=== PATIENT | female | born 1935 | race Caucasian/White ===

== ENCOUNTER 2019-08-22 18:24 | Emergency (ER) | payer OTHER ==
[~2019-08-22] VITALS: Ht 167.6 cm; Wt 63.5 kg
[2019-08-22 18:58] LABS: BASOPHILS # (AUTO) 0.1 /CMM (0.0-0.2); BASOPHILS % (AUTO) 0.9 % (0.0-2.0); EOSINOPHILS % (AUTO) 1.8 % (0.0-6.0); HEMATOCRIT 37 % (33-45); HEMOGLOBIN 12.2 g/dL (11.5-14.8); LYMPHOCYTES # (AUTO) 1.3 /CMM (0.8-4.8); MEAN CORPUSCULAR HGB CONC 33 g/dl (31.0-36.0); MEAN CORPUSCULAR VOLUME 98 fL (82-100); MONOCYTES # (AUTO) 0.6 /CMM (0.1-1.30); MONOCYTES % (AUTO) 7.4 % (2.0-12.0); NEUTROPHILS # (AUTO) 5.7 /CMM (1.8-8.9); NEUTROPHILS % (AUTO) 72.9 % (43.0-81.0); PLATELET COUNT (AUTO) 214 /CMM (150-450); RED BLOOD CELL COUNT(AUTO) 3.72 MIL/uL (4.0-5.2); WHITE BLOOD COUNT (AUTO) 7.8 K/uL (4.3-11.0)
[2019-08-22] MEDS ORDERED: IV NS 0.9% 1,000 ML BAG IV ONE (19:00)
[2019-08-22 19:22] LABS: CALCIUM, SERUM 9.8 mg/dL (8.5-10.1); CARBON DIOXIDE 31 mmol/L (21-32); CHLORIDE 105 mmol/L (98-107); CREATININE 1.7 mg/dL (0.6-1.3); GLUCOSE 213 mg/dL (74-106); SODIUM SERUM 143 mmol/L (136-145); UREA NITROGEN, BLOOD 45 mg/dL (7-18)
[2019-08-22 19:28] LABS: ALANINE AMINOTRANSFERASE 6 U/L (12-78); ALBUMIN 3.2 g/dL (3.4-5.0); ASPARTATE AMINOTRANSFERASE 19 U/L (15-37); BILIRUBIN,DIRECT 0.1 mg/dL (0.0-0.2); BILIRUBIN,TOTAL 0.5 mg/dL (0.2-1.0); TOTAL PROTEIN, SERUM 6.9 g/dL (6.4-8.2)
--- NOTE | 2019-08-22 19:35 | NUR ---
ASSUMMED CARE FROM MIRNA WERNER FROM THIS TIME ONWARDS
--- NOTE | 2019-08-22 19:40 | NUR ---
PT PLACED ON MONITOR
[2019-08-22 19:54] LABS: ALKALINE PHOSPHATASE 43 U/L (46-116)
[2019-08-22 20:57] LABS: APPEARANCE,URINE TURBID (CLEAR); BILIRUBIN,URINE NEGATIVE (NEGATIVE); BLOOD, URINE TRACE Ery/uL (NEGATIVE); COLOR,URINE YELLOW (YELLOW); KETONES,URINE NEGATIVE (NEGATIVE); LEUKOCYTE ESTERASE ,URINE LARGE (NEGATIVE); NITRITE, URINE POSITIVE (NEGATIVE); PROTEIN,URINE 30 mg/dl (NEGATIVE); UGLUCOSE NEGATIVE (NEGATIVE); UROBILINOGEN,URINE 0.2 EU/dL (0.2)
[2019-08-22 21:03] LABS: BACTERIA,URINE Many /HPF (None Seen); RBC,URINE 0-2 /HPF (0-2); SQUAMOUS EPITHELIAL CELL,UR Few /HPF (None Seen); WBC,URINE TOO NUMEROUS TO COUN /HPF (0-3)
[2019-08-22] MEDS ORDERED: CEFTRIAXONE 1 G in IV D5W 50 ML IV ONE (21:30)
[2019-08-22] MEDS ORDERED: IV NS 0.9% 1,000 ML IV ONE (21:30)
[2019-08-22] MEDS ORDERED: CEFTRIAXONE 1GM BAG (ER ONLY) 50 ML IV ONE (21:38)
--- NOTE | 2019-08-22 22:22 | NUR ---
[facility] ETA 0030 TRIP #[id number]
--- NOTE | 2019-08-22 23:50 | NUR ---
pt noted agitated aeb pt trying to get out of bed and removing all monitors. md made aware. received verbal order to give ativan 1mg im x 1 dose.
[2019-08-22] MEDS ORDERED: LORAZEPAM INJ 2 MG/ML VIAL ONE (23:57)
[2019-08-23] MEDS ORDERED: LORAZEPAM INJ 2 MG/ML VIAL IM ONE (00:30)
--- NOTE | 2019-08-23 01:26 | NUR ---
[facility]ANCE ETA 30-45 MINS.
[2019-08-23] MEDS ORDERED: CLONIDINE HCL 0.1 MG TABLET ONE (01:31)
--- NOTE | 2019-08-23 01:33 | NUR ---
PT NOTED WITH BP OF 175/82. MADE AWARE. RECEIVED ORDER TO GIVE CLONIDINE 0.1MG PO X 1 DOSE
--- NOTE | 2019-08-23 02:18 | NUR ---
[facility] 220 AT BEDSIDE FOR TRANSPORT BACK TO FACILITY. REPORT GIVEN. NAD NOTED. PT STABLE FOR TRANSPORT
[2019-08-23 02:19] VITALS: BP 143/78
[2019-08-24] MEDS ORDERED: ATOR80TA PO (18:37)
[2019-08-24] MEDS ORDERED: TEMA15CA PO (18:37)
[2019-08-24] MEDS ORDERED: ACET-73 PO (18:37)
[2019-08-24] MEDS ORDERED: OLAN5TAB3 PO (18:37)
[2019-08-24] MEDS ORDERED: CARB-93 PO (18:37)
[2019-08-24] MEDS ORDERED: LISI-605 PO (18:37)
[2019-08-24] MEDS ORDERED: CEPH500T PO (18:37)
[2019-08-24] MEDS ORDERED: AMLO5TAB9 PO (18:37)
[2019-08-27] MEDS ORDERED: LEVO500T75 PO (12:49)
== END 2019-08-23 02:20 | disposition home or self-care (01) ==
LOC: ER 18:33
DX: R41.0 Disorientation, unspecified (principal); N39.0 Urinary tract infection, site not specified; F03.90 Unspecified dementia, unspecified severity, without behavioral disturbance, psychotic disturbance, mood disturbance, and anxiety; E11.22 Type 2 diabetes mellitus with diabetic chronic kidney disease; I13.0 Hypertensive heart and chronic kidney disease with heart failure and stage 1 through stage 4 chronic kidney disease, or unspecified chronic kidney disease; I50.9 Heart failure, unspecified; N18.9 Chronic kidney disease, unspecified; E78.5 Hyperlipidemia, unspecified; F31.9 Bipolar disorder, unspecified; Z86.73 Personal history of transient ischemic attack (TIA), and cerebral infarction without residual deficits
CPT/HCPCS: 36415; 71045; 80048; 80076; 81001; 84484; 85025; 85730; 87077; 87086; 87186; 96361; 96372; 96374; 99284; J0696 ×2; J2060; J7030 ×2; J7060; 81000-TC

== ENCOUNTER 2019-08-24 17:33 | Inpatient (IN) | payer OTHER ==
[~2019-08-24] VITALS: Ht 165.1 cm; Wt 64.9 kg
--- NOTE | 2019-08-24 17:54 | NUR ---
PT BIBPA FROM [facility], C/O GEN WEAKNESS, UNABLE TO EAT. PT IS AAOX0, NOT IN RESPIRATORY DISTRESS, HOOKED TO MONITOR, KEPT RESTED AND COMFORTABLE, WILL CONTINUE TO MONITOR.
--- NOTE | 2019-08-24 18:08 | NUR ---
AT BEDSIDE FOR EVAL.
[2019-08-24] MEDS ORDERED: CEPH500T PO (18:37)
[2019-08-24] MEDS ORDERED: ACET-73 PO (18:37)
[2019-08-24] MEDS ORDERED: LISI-605 PO (18:37)
[2019-08-24] MEDS ORDERED: ATOR80TA PO (18:37)
[2019-08-24] MEDS ORDERED: OLAN5TAB3 PO (18:37)
[2019-08-24] MEDS ORDERED: AMLO5TAB9 PO (18:37)
[2019-08-24] MEDS ORDERED: TEMA15CA PO (18:37)
[2019-08-24] MEDS ORDERED: CARB-93 PO (18:37)
--- NOTE | 2019-08-24 18:50 | NUR ---
IV LINE ESTABLISHED, BLOOD DRAWN AND SENT TO LAB.
[2019-08-24 18:58] LABS: BASOPHILS # (AUTO) 0.2 /CMM (0.0-0.2); BASOPHILS % (AUTO) 3.3 % (0.0-2.0); EOSINOPHILS % (AUTO) 3.1 % (0.0-6.0); HEMATOCRIT 35 % (33-45); HEMOGLOBIN 11.6 g/dL (11.5-14.8); LYMPHOCYTES # (AUTO) 1.1 /CMM (0.8-4.8); LYMPHOCYTES % (AUTO) 16.5 % (20.0-44.0); MEAN CORPUSCULAR HGB CONC 33 g/dl (31.0-36.0); MEAN CORPUSCULAR VOLUME 98 fL (82-100); MONOCYTES # (AUTO) 0.6 /CMM (0.1-1.30); MONOCYTES % (AUTO) 8.3 % (2.0-12.0); NEUTROPHILS # (AUTO) 4.6 /CMM (1.8-8.9); NEUTROPHILS % (AUTO) 68.8 % (43.0-81.0); PLATELET COUNT (AUTO) 192 /CMM (150-450); RED BLOOD CELL COUNT(AUTO) 3.58 MIL/uL (4.0-5.2); WHITE BLOOD COUNT (AUTO) 6.7 K/uL (4.3-11.0)
[2019-08-24] MEDS ORDERED: IV NS 0.9% 1,000 ML BAG IV ONE (19:00)
--- NOTE | 2019-08-24 19:05 | NUR ---
URINE SPECIMEN COLLECTED AND SENT TO LAB.
[2019-08-24 19:06] LABS: CALCIUM, SERUM 9.9 mg/dL (8.5-10.1); CARBON DIOXIDE 30 mmol/L (21-32); CHLORIDE 107 mmol/L (98-107); CREATININE 1.5 mg/dL (0.6-1.3); GLUCOSE 166 mg/dL (74-106); POTASSIUM 3.9 mmol/L (3.5-5.1); SODIUM SERUM 145 mmol/L (136-145); UREA NITROGEN, BLOOD 39 mg/dL (7-18)
[2019-08-24 19:12] LABS: ALANINE AMINOTRANSFERASE 7 U/L (12-78); ALKALINE PHOSPHATASE 40 U/L (46-116); ASPARTATE AMINOTRANSFERASE 20 U/L (15-37); BILIRUBIN,DIRECT 0.1 mg/dL (0.0-0.2); BILIRUBIN,TOTAL 0.5 mg/dL (0.2-1.0); TOTAL PROTEIN, SERUM 6.4 g/dL (6.4-8.2)
[2019-08-24 19:16] LABS: APPEARANCE,URINE Slightly Cloudy (CLEAR); BILIRUBIN,URINE Negative (NEGATIVE); BLOOD, URINE Trace-intact Ery/uL (NEGATIVE); COLOR,URINE Yellow (YELLOW); KETONES,URINE Negative (NEGATIVE); LEUKOCYTE ESTERASE ,URINE Large (NEGATIVE); NITRITE, URINE Negative (NEGATIVE); PH,URINE 5.5 (5.0-8.0); PROTEIN,URINE 100 mg/dl (NEGATIVE); UGLUCOSE Negative (NEGATIVE); UROBILINOGEN,URINE 0.2 EU/dL (0.2)
[2019-08-24 19:28] LABS: BACTERIA,URINE 1+ /HPF (None Seen); SQUAMOUS EPITHELIAL CELL,UR Few /HPF (None Seen); WBC,URINE 21-50 /HPF (0-3)
--- NOTE | 2019-08-24 19:40 | NUR ---
EPIC FULL FASHIONED GARMENT KNITTER PAGED
[2019-08-24] MEDS ORDERED: CEFTRIAXONE 1GM BAG (ER ONLY) 1 GM/50 ML PIGGYBACK IV ONE (20:00)
[2019-08-24] MEDS ORDERED: CEFTRIAXONE 1 G VIAL ONE (20:03)
--- NOTE | 2019-08-24 20:06 | NUR ---
RECIEVED BED 312-2
--- NOTE | 2019-08-24 20:31 | NUR ---
GAVE REPORT TO MIRNA SOTO FOR FRANCESCA
[2019-08-24 21:00] VITALS: BP 152/88
[2019-08-24] MEDS ORDERED: PIPERACILLIN /TAZOBACTAM 3.375 G in IV D5W 50 ML IV ONE (21:00)
[2019-08-24] MEDS ORDERED: MAG HYDROX/AL HYDROX/SIMETH 30 ML UDC PO PRN (21:00)
[2019-08-24] MEDS ORDERED: MAGNESIUM HYDROXIDE 30 ML UDC PO PRN (21:00)
[2019-08-24] MEDS ORDERED: ACETAMINOPHEN 325 MG TABLET PO PRN (21:00)
[2019-08-24] MEDS ORDERED: HYDROCODONE/APAP 5/325MG 1 EACH TABLET PO PRN (21:00)
[2019-08-24] MEDS ORDERED: ONDANSETRON HCL/PF 4 MG/2 ML VIAL IVP PRN (21:00)
[2019-08-24] MEDS ORDERED: Z GUARD REMEDY 2 OZ OINT TP PRN (21:00)
[2019-08-24] MEDS ORDERED: ZOLPIDEM TARTRATE 5 MG TABLET PO PRN (21:00)
--- NOTE | 2019-08-24 21:00 | NUR ---
[facility]
[2019-08-24 21:05] VITALS: BP 152/88
[2019-08-24] MEDS: IV D5/0.45 NACL 1,000 ML IV PRN (21:28)
[2019-08-24] MEDS: ENOXAPARIN SODIUM 30 MG/0.3 ML DISP.SYRIN SQ SCH (21:41)
[2019-08-24] MEDS: OLANZAPINE 5 MG TABLET PO SCH (21:42)
[2019-08-24] MEDS: TEMAZEPAM 15 MG CAPSULE PO SCH (21:42)
--- NOTE | 2019-08-24 22:53 | NUR ---
MS RN RECEIVE PT FROM [facility] A/O X 1 TO NAME, ABLE TO ANSWER SIMPLE QUESTIONS. HEAD TO TOE ASSESSMENT IS DONE. RESPIRATIONS EVEN AND UNLABORED NO S/S OF DISTRESS, STABLE. KEPT CLEAN, DRY AND COMFORTABLE. PM CARE RENDERED. SAFETY MEASURES AT ALL TIMES. WILL CONTINUE TO MONITOR,.
[2019-08-25] MEDS: PIPERACILLIN /TAZOBACTAM 3.375 G in IV D5W 100 ML IV SCH ×3 (01:21→17:16)
--- NOTE | 2019-08-25 06:13 | NUR ---
MS RN PT ASLEEP AND EASILY AWAKEN. RESPIRATIONS EVEN AND UNLABORED. NO S/S OF DISTRESS. NEEDS ATTENDED AND ANTICIPATED, KEPT CLEAN, DRY AND COMFORTABLE. NO C/O OF PAIN AT THIS TIME. AM CARE RENDERED, SAFETY MEASURES AT ALL TIMES. WILL ENDORSE NEXT SHIFT POC.
[2019-08-25 06:49] LABS: BASOPHILS % (AUTO) 0.7 % (0.0-2.0); EOSINOPHILS % (AUTO) 4.6 % (0.0-6.0); HEMATOCRIT 34 % (33-45); HEMOGLOBIN 11.2 g/dL (11.5-14.8); LYMPHOCYTES # (AUTO) 1.6 /CMM (0.8-4.8); LYMPHOCYTES % (AUTO) 24.6 % (20.0-44.0); MEAN CORPUSCULAR HGB CONC 33 g/dl (31.0-36.0); MEAN CORPUSCULAR VOLUME 98 fL (82-100); MONOCYTES # (AUTO) 0.8 /CMM (0.1-1.30); MONOCYTES % (AUTO) 11.6 % (2.0-12.0); NEUTROPHILS # (AUTO) 3.8 /CMM (1.8-8.9); NEUTROPHILS % (AUTO) 58.5 % (43.0-81.0); PLATELET COUNT (AUTO) 172 /CMM (150-450); RED BLOOD CELL COUNT(AUTO) 3.47 MIL/uL (4.0-5.2); WHITE BLOOD COUNT (AUTO) 6.5 K/uL (4.3-11.0)
--- NOTE | 2019-08-25 07:05 | NUR ---
MS RN OPENING NOTES RECEIVED PATIENT IN BED ASLEEP, AROUSABLE TO VERBAL AND TACTILE STIMULI. HOB ELEVATED. NO SOB. ON O2 2L/MIN VIA NC TIFFANY WELL. IV ACCESS SITE INTACT AND PATEN TO LEFT ACT. DENIES ANY C/O PAIN NOR DISCOMFORT AT THIS TIME. BED IN LOWEST POSITION, LOCKED. BED ALARM ON.CALL LIGHT WITHIN REACH. BED SIDERAILS UP X2.
[2019-08-25 07:21] LABS: CARBON DIOXIDE 31 mmol/L (21-32); CHLORIDE 110 mmol/L (98-107); CREATININE 1.4 mg/dL (0.6-1.3); GLUCOSE 132 mg/dL (74-106); MAGNESIUM 1.5 mg/dL (1.8-2.4); PHOSPHORUS 3.3 mg/dL (2.5-4.9); POTASSIUM 3.5 mmol/L (3.5-5.1); SODIUM SERUM 146 mmol/L (136-145); UREA NITROGEN, BLOOD 31 mg/dL (7-18)
[2019-08-25 07:31] LABS: CHOLESTEROL 107 mg/dL (<200); HDL CHOLESTEROL 42 mg/dL (40-60); LDL 54 mg/dL (0-99); TRIGLYCERIDES 82 mg/dL (30-150)
[2019-08-25 08:00] VITALS: BP 158/78
[2019-08-25] MEDS: LISINOPRIL (10MG) 10 MG TABLET PO SCH (09:36)
[2019-08-25] MEDS: CARBIDOPA/LEVODOPA 25/100 MG 1 UDTAB PO SCH ×3 (09:37→16:20)
[2019-08-25] MEDS: AMLODIPINE BESYLATE 5 MG TABLET PO SCH (09:37)
[2019-08-25] MEDS: Magnesium 1GM/D5W 100ML PREMIX 100 ML IV SCH ×2 (09:59→11:50)
[2019-08-25 16:00] VITALS: BP 149/79
[2019-08-25] MEDS: IV D5/0.45 NACL 1,000 ML IV PRN (17:17)
--- NOTE | 2019-08-25 18:46 | NUR ---
MS RN CLOSING NOTES ALERT AND ORIENTED X3. SPEAKS BOTH FAROESE AND GIBRALTARIAN. HOB ELEVATED. NO SOB. ON ROOM AIR WITH SPO2 OF 96%. IS DONE BY PATIENT PERIODICALLY EDUCATED DURING THE SHIFT TIFFANY WELL. COMPLIANT WITH CARE. INDEPENDENT WITH BED MOBILITY. LEFT AC # 20 INTACT AND PATENT INFUSING D5 1/2 NS AT 75ML/HR. DENIES ANY C/O PAIN NOR DISCOMFORT AT THIS TIME. BED IN LOWEST POSITION, LOCKED. BED ALARM ON.CALL LIGHT WITHIN REACH. BED SIDERAILS UP X2. IN NO APPARENT DISTRESS.
[2019-08-25] MEDS ORDERED: DEXTROSE 50%-WATER 50 ML DISP.SYRIN IV PRN (19:00)
--- NOTE | 2019-08-25 19:25 | NUR ---
saddle and harness maker: received report from radha mcclure. pt in bed, awake, a/o x 2-3. on ra respirations even and unlabored. iv access on left ac g 20, infusing with ivf as ordered. per report pt has decreased oral intake and sun downer. pt able to state her name, , year and where she is right now, icluding reason why she's in the hospital. safety precautions for fall initiated, call light in reach, will continue monitoring pt.
[2019-08-25 20:00] VITALS: BP 130/96
[2019-08-25] MEDS: ATORVASTATIN 40 MG TABLET PO SCH (22:39)
[2019-08-25] MEDS: ENOXAPARIN SODIUM 30 MG/0.3 ML DISP.SYRIN SQ SCH (22:39)
[2019-08-25] MEDS: OLANZAPINE 5 MG TABLET PO SCH (22:39)
[2019-08-25] MEDS: TEMAZEPAM 15 MG CAPSULE PO SCH (22:40)
[2019-08-25] MEDS: BLOOD SUGAR DIAGNOSTIC 1 EACH STRIP IN SCH (22:44)
[2019-08-25] MEDS: INSULIN REGULAR, HUMAN 100 UNIT/ML 3 ML VIAL SQ PRN (22:48)
--- NOTE | 2019-08-25 23:04 | NUR ---
RN NOTES/GLUCOSE 146: BLOOD GLUCOSE CHECK, RESULT IS 146, 2UNITS OF INSULIN GIVEN PER SLIDING SCALE. ALSO PT REQUESTED TO CRUSHED HER MEDS. ASPIRATION PRECAUTIONS INITIATED, KEPT UPRIGHT, PT TOOK ALL HER MEDICATIONS, SWALLOWS FINE, NO ASPIRATION NOTED. PT DRINK 100% OF CRANBERRY JUICE. ORAL CARE PROVIDED.
--- NOTE | 2019-08-26 00:55 | NUR ---
RN NOTES/NEW IV INSERTION: PREVIOUS IV ACCESS NOTED TO BE INFILTRATED, REMOVED AND PRESSURED DRESSING APPLIED. RESTARTED NEW IV ON LEFT AC G 24, PT HAS ROLLING VEINS, TINY, GOOD BLOOD RETURN NOTED, APPROPRIATE LABEL ATTACHED, CONNECTED BACK TO IVF ORDERED.
[2019-08-26] MEDS: PIPERACILLIN /TAZOBACTAM 3.375 G in IV D5W 100 ML IV SCH ×3 (01:40→18:17)
[2019-08-26 06:23] LABS: BASOPHILS % (AUTO) 0.5 % (0.0-2.0); EOSINOPHILS % (AUTO) 2.1 % (0.0-6.0); HEMATOCRIT 37 % (33-45); HEMOGLOBIN 12.2 g/dL (11.5-14.8); LYMPHOCYTES # (AUTO) 1.2 /CMM (0.8-4.8); LYMPHOCYTES % (AUTO) 16.9 % (20.0-44.0); MEAN CORPUSCULAR HGB CONC 33 g/dl (31.0-36.0); MEAN CORPUSCULAR VOLUME 97 fL (82-100); MONOCYTES # (AUTO) 0.6 /CMM (0.1-1.30); NEUTROPHILS # (AUTO) 5.1 /CMM (1.8-8.9); NEUTROPHILS % (AUTO) 71.5 % (43.0-81.0); PLATELET COUNT (AUTO) 204 /CMM (150-450); RED BLOOD CELL COUNT(AUTO) 3.83 MIL/uL (4.0-5.2); WHITE BLOOD COUNT (AUTO) 7.1 K/uL (4.3-11.0)
[2019-08-26] MEDS: BLOOD SUGAR DIAGNOSTIC 1 EACH STRIP IN SCH ×4 (06:27→22:05)
[2019-08-26] MEDS: INSULIN REGULAR, HUMAN 100 UNIT/ML 3 ML VIAL SQ PRN ×3 (06:27→22:08)
--- NOTE | 2019-08-26 06:28 | NUR ---
RN NOTES/BLOOD GLUCOSE 110: BLOOD GLUCOSE FOR THIS AM IS 110, NO INSULIN COVERAGE GIVEN PER SLIDING SCALE.
--- NOTE | 2019-08-26 06:48 | NUR ---
EOSS: NO S/S OF ACTIVE BLEEDING NOTED, PT ABLE TO REMAIN CALM AND COOPERATIVE THROUGHOUT THE SHIFT. IV ACCESS REMAINS PATENT AND FLUSHING WELL, INFUSING WITH IVF ORDERED. NO S/S OF IV INFILTRATION NOTED. NO ASPIRATION NOTED. BLE KEPT OFFLOADED ON PILLOWS. VS REMAINS STABLE, NEEDS ATTENDED. SAFETY PRECAUTIONS FOR FALL REMAINS ENGAGED, CALL LIGHT IN REACH, WILL ENDORSE TO DAY RN FOR CONTINUITY OF CARE.
--- NOTE | 2019-08-26 07:15 | NUR ---
MS RN NOTES RECEIVED PATIENT AWAKE IN BED. A/O X2-3, NO SOB OR DISCOMFORT NOTED AT THIS TIME. BED AT THE LOWEST POSITION LOCKED, CALL LIGHT WITHIN REACH. WILL CONTINUE TO MONITOR.
[2019-08-26 08:00] VITALS: BP 157/79
[2019-08-26 08:14] LABS: CALCIUM, SERUM 9.1 mg/dL (8.5-10.1); CARBON DIOXIDE 30 mmol/L (21-32); CHLORIDE 106 mmol/L (98-107); CREATININE 1.4 mg/dL (0.6-1.3); GLUCOSE 108 mg/dL (74-106); MAGNESIUM 1.5 mg/dL (1.8-2.4); PHOSPHORUS 2.8 mg/dL (2.5-4.9); SODIUM SERUM 144 mmol/L (136-145); UREA NITROGEN, BLOOD 26 mg/dL (7-18)
[2019-08-26] MEDS: AMLODIPINE BESYLATE 5 MG TABLET PO SCH (08:53)
[2019-08-26 08:54] LABS: POTASSIUM 2.7 mmol/L (3.5-5.1)
[2019-08-26] MEDS: LISINOPRIL (10MG) 10 MG TABLET PO SCH (08:54)
[2019-08-26] MEDS: CARBIDOPA/LEVODOPA 25/100 MG 1 UDTAB PO SCH ×3 (08:54→18:02)
--- NOTE | 2019-08-26 08:58 | NUR ---
MS RN NOTES RECIVED CRITICAL LAB VALUE FROM LAB POTASSIUM 2.7 WILL INFORM MICHAEL MUKHERJEE.
[2019-08-26] MEDS: POTASSIUM CHLORIDE 20 MEQ TAB.PRT.SR PO ONE ×2 (09:30→10:13)
--- NOTE | 2019-08-26 10:19 | NUR ---
MS RN NOTES K DUR WAS CRUSHED AND WASTED ORDERED ANOTHER 40 MEQ
[2019-08-26] MEDS ORDERED: POTASSIUM CHLORIDE 20 MEQ TAB.PRT.SR PO ONE (10:30)
[2019-08-26] MEDS ORDERED: POTASSIUM CHLORIDE 20 MEQ POWDER PACKET PO ONE (11:00)
[2019-08-26] MEDS: Magnesium 1GM/D5W 100ML PREMIX 100 ML IV SCH ×2 (11:02→12:11)
[2019-08-26 16:00] VITALS: BP 151/81
--- NOTE | 2019-08-26 18:04 | NUR ---
MS RN NOTES BLOOD SUGAR 94 NO INSULIN ADMINISTRATED.
[2019-08-26] MEDS: IV D5/0.45 NACL 1,000 ML IV PRN (18:18)
--- NOTE | 2019-08-26 19:15 | NUR ---
environmental engineering intern notes: received report from taina mcclure. pt was transferred from room 312-2 to room 309-2, as pt kept getting out of bed, without calling for help, sundowner, and trying to pull out lines. now pt has 1:1 sitter at bed side. pt a/o x2-3 on ra respirations even and unlabored. denies any pain or discomfort at this time. iv access patent and flushing well, infusing with d51/2ns at 125ml/hr. discussed plan of care to pt. safety precautions for fall initiated, call light in reach, will continue monitoring pt.
--- NOTE | 2019-08-26 19:41 | NUR ---
MS BRADLEY NOTES RECEIVED PATIENT IN BED A/OX2 CONFUSED. NO SOB OR DISCOMFORT NOTED. BED AT THE LOWEST POSITION LOCKED, CALL LIGHT WITHIN REACH. Addendum: 08/26/19 at 1942 by TRIXIE POSADA RN WRONG PT
--- NOTE | 2019-08-26 19:42 | NUR ---
MS RN NOTES PATIENT IN BED A/OX2 AWAKE CONFUSED. ALL NEEDS ATTENDED. NO SOB OR DISCOMFORT NOTED. BED AT THE LOWEST POSITION LOCKED, CALL LIGHT WITHIN REACH. ENDORSED TO AIR SHOVEL OPERATOR NURSE FOR FRANCESCA.
[2019-08-26 20:00] VITALS: BP 158/91
[2019-08-26 20:30] VITALS: BP 158/91
[2019-08-26] MEDS: OLANZAPINE 5 MG TABLET PO SCH (22:05)
[2019-08-26] MEDS: TEMAZEPAM 15 MG CAPSULE PO SCH (22:05)
[2019-08-26] MEDS: ATORVASTATIN 40 MG TABLET PO SCH (22:05)
[2019-08-26] MEDS: ENOXAPARIN SODIUM 30 MG/0.3 ML DISP.SYRIN SQ SCH (22:08)
--- NOTE | 2019-08-26 22:08 | NUR ---
RN NOTES/BLOOD GLUCOSE 148: BLOOD GLUCOSE RESULT IS 148, 2UNITS OF INSULIN GIVEN PER SLIDING SCALE. ALL DUE MEDS ADMINISTERED.
[2019-08-27] MEDS: PIPERACILLIN /TAZOBACTAM 3.375 G in IV D5W 100 ML IV SCH ×3 (01:04→17:35)
[2019-08-27 06:21] LABS: BASOPHILS % (AUTO) 0.2 % (0.0-2.0); EOSINOPHILS % (AUTO) 1.8 % (0.0-6.0); HEMATOCRIT 39 % (33-45); HEMOGLOBIN 12.9 g/dL (11.5-14.8); LYMPHOCYTES # (AUTO) 1.5 /CMM (0.8-4.8); LYMPHOCYTES % (AUTO) 15.9 % (20.0-44.0); MEAN CORPUSCULAR HGB CONC 33 g/dl (31.0-36.0); MEAN CORPUSCULAR VOLUME 97 fL (82-100); MONOCYTES # (AUTO) 0.8 /CMM (0.1-1.30); MONOCYTES % (AUTO) 8.3 % (2.0-12.0); NEUTROPHILS # (AUTO) 7.1 /CMM (1.8-8.9); NEUTROPHILS % (AUTO) 73.8 % (43.0-81.0); PLATELET COUNT (AUTO) 203 /CMM (150-450); RED BLOOD CELL COUNT(AUTO) 4.03 MIL/uL (4.0-5.2); WHITE BLOOD COUNT (AUTO) 9.7 K/uL (4.3-11.0)
[2019-08-27] MEDS: BLOOD SUGAR DIAGNOSTIC 1 EACH STRIP IN SCH ×4 (06:22→21:51)
[2019-08-27] MEDS: INSULIN REGULAR, HUMAN 100 UNIT/ML 3 ML VIAL SQ PRN ×3 (06:22→21:53)
--- NOTE | 2019-08-27 06:23 | NUR ---
RN NOTES/BLOOD GLUCOSE 133: BLOOD GLUCOSE 133, 2UNITS OF INSULIN GIVEN PER SLIDING SCALE.
[2019-08-27 06:24] LABS: CARBON DIOXIDE 30 mmol/L (21-32); CHLORIDE 108 mmol/L (98-107); CREATININE 1.4 mg/dL (0.6-1.3); GLUCOSE 125 mg/dL (74-106); MAGNESIUM 1.8 mg/dL (1.8-2.4); PHOSPHORUS 2.7 mg/dL (2.5-4.9); POTASSIUM 3.3 mmol/L (3.5-5.1); SODIUM SERUM 144 mmol/L (136-145); UREA NITROGEN, BLOOD 19 mg/dL (7-18)
--- NOTE | 2019-08-27 06:46 | NUR ---
EOSS: PT ABLE TO REMAIN CALM AND COOPERATIVE HOWEVER NOTED EPISODE OF SUNDOWNING, TRYING TO GET OUT OF BED.SITTER AT BED SIDE. IV ACCESS REMAINS PATENT AND FLUSHING WELL, INFUSING WITH IVF ORDERED. NO S/S OF IV INFILTRATION NOTED. NO ASPIRATION NOTED. NO S/S OF ACTIVE BLEEDING NOTED. BLE KEPT OFFLOADED ON PILLOWS. VS REMAINS STABLE, NEEDS ATTENDED. AWAITING FINAL UA CULTURE RESULT. SAFETY PRECAUTIONS FOR FALL REMAINS ENGAGED, CALL LIGHT IN REACH, WILL ENDORSE TO DAY RN FOR CONTINUITY OF CARE.
--- NOTE | 2019-08-27 07:28 | NUR ---
RN OPENING NOTES Patient received on room air, no sob noted, patient shows no s/s of pain at this time. L AC 24 gauge with d5 1/2 ns @ 125 ml per hour running and is obstruction free. Sitter at bedside the whole time. Bed at the lowest setting, call light within reach, side rails up x2.
[2019-08-27 08:30] VITALS: BP 174/69
[2019-08-27] MEDS: AMLODIPINE BESYLATE 5 MG TABLET PO SCH (09:02)
[2019-08-27] MEDS: LISINOPRIL (10MG) 10 MG TABLET PO SCH (09:02)
[2019-08-27] MEDS: CARBIDOPA/LEVODOPA 25/100 MG 1 UDTAB PO SCH ×3 (09:03→16:52)
--- NOTE | 2019-08-27 10:14 | NUR ---
WOUND CARE CONSULT: PT PRESENTS WITH INCONTINENCE, RASH TO BUTTOCKS, LOWER BACK ABRASION, MULTIPLE AREAS OF SKIN DISCOLORATION, PRESENT ON ADMISSION. RECOMMENDATIONS MADE FOR WOUND CARE AND SKIN PROTECTION. DISCUSSED WITH NURSING STAFF. CURRENT NESSA SCORE IS 14. WILL SEE PRN. GIRARD IN AGREEMENT WITH PLAN OF CARE. Addendum: 08/27/19 at 1015 by SHARLA LÓPEZ WNDNU Amended: Links added.
[2019-08-27] MEDS ORDERED: POTASSIUM CHLORIDE 20 MEQ TAB.PRT.SR PO SCH (11:30)
[2019-08-27 12:00] VITALS: BP 138/68
[2019-08-27] MEDS ORDERED: LEVO500T75 PO (12:49)
[2019-08-27] MEDS: IV D5/0.45 NACL 1,000 ML IV PRN (16:45)
[2019-08-27 17:00] VITALS: BP 125/68
[2019-08-27] MEDS ORDERED: CLOTRIMAZOLE 1% 15 GM TUBE TP SCH (17:00)
--- NOTE | 2019-08-27 17:55 | NUR ---
RN NOTES Patient remains on room air, no sob noted, patient a/o x2 at this time. Remains on diapers and is awaiting placement at this time. Sitter with patient at all times. L AC 24 gauge, d5 1/2 ns @ 125 ml per hour. Bed at tyhe lowest setting, call light within reach, side rails up x2. Will give report to NOC RN for bedside report.
--- NOTE | 2019-08-27 19:20 | NUR ---
CALLED [employer] [employer] ABOUT D/C TRANSPORTATION DRYING OVEN TENDER TIME. NO ANSWER. WILL FOLLOW UP.
--- NOTE | 2019-08-27 19:49 | NUR ---
MS RN OPENING NOTES Patient is currently resting in bed with sitter at bedside, a/o x3. Stale on RA breathing even and unlabored, no signs of acute distress. IV located on L AC running D5 1/2 NS. Safety precautions are in place with bed in lowest position, breaks on, and call light within reach. Awaiting discharge. Will continue to monitor.
[2019-08-27] MEDS: ATORVASTATIN 40 MG TABLET PO SCH (21:34)
[2019-08-27] MEDS: TEMAZEPAM 15 MG CAPSULE PO SCH (21:34)
[2019-08-27] MEDS: OLANZAPINE 5 MG TABLET PO SCH (21:34)
[2019-08-27] MEDS: ENOXAPARIN SODIUM 30 MG/0.3 ML DISP.SYRIN SQ SCH (21:38)
--- NOTE | 2019-08-27 22:54 | NUR ---
MS WATERWORKS SUPERVISOR NOTES PATIENT DISCHARGED VIA GURNEY ACCOMPANIED BY TWO TRANSPORTERS. PATIENT A/O X 3, STABLE ON ROOM AIR. MEDICALLY STABLE, NO COMPLAINTS OF PAIN OR DISTRESS. SCHEDULED MEDICATIONS WERE GIVEN BEFORE DISCHARGE. VITALS WNL. IV WAS REMOVED AND ID BAND. ALL BELONGINGS WERE ACCOUNTED FOR. DISCHARGE PAPER WORKS PUT TOGETHER AND TOLD TRANSPORTERS WHAT PACKET OBTAINED.
== END 2019-08-27 22:30 | DRG 689 ==
LOC: ER 17:35 → MED 20:28
PROVIDERS: ADMIT Hospitalist; ATTEND Nurse Practitioner Acute Care
DX: N30.01 Acute cystitis with hematuria (principal); N17.0 Acute kidney failure with tubular necrosis; E44.1 Mild protein-calorie malnutrition; E87.0 Hyperosmolality and hypernatremia; E86.0 Dehydration; R62.7 Adult failure to thrive; E83.42 Hypomagnesemia; N18.9 Chronic kidney disease, unspecified; G20 Parkinson's disease; F02.80 Dementia in other diseases classified elsewhere, unspecified severity, without behavioral disturbance, psychotic disturbance, mood disturbance, and anxiety; I12.9 Hypertensive chronic kidney disease with stage 1 through stage 4 chronic kidney disease, or unspecified chronic kidney disease; Z87.891 Personal history of nicotine dependence; E88.09 Other disorders of plasma-protein metabolism, not elsewhere classified; R53.1 Weakness; Z68.23 Body mass index [BMI] 23.0-23.9, adult; G62.9 Polyneuropathy, unspecified; E11.22 Type 2 diabetes mellitus with diabetic chronic kidney disease
CPT/HCPCS: 36415; 71045-TC; 80048-TC; 80061-TC; 80076-TC; 81000-TC; 82962-TC; 83735-TC; 84100-TC; 84484-TC; 85025-TC; 85730-TC; 87040-TC; 87081-TC; 87086-TC; 97116-TC; 97530-TC; A4216; G0378; J0696; J1650; J1815; J2543; J3475; J3490; J7030; J7060